=== PATIENT | female | born 1955 | race Asian ===

== ENCOUNTER 2017-12-18 23:51 | Inpatient (IN) | payer OTHER ==
[~2017-12-18] VITALS: Ht 154.9 cm; Wt 62.8 kg
[2017-12-19 01:05] LABS: Hematocrit 37.5 % (36.0-46.0); Hemoglobin 12.5 g/dL (12.2-16.2); Mean Corpuscular Hemoglobin 30.8 pg (28.0-32.0); Mean Corpuscular Hgb Conc. 33.5 g/dL (32.0-36.0); Platelet Count (auto) 261 10^3/uL (140-450); Red Blood Cells 4.07 10^6/uL (4.0-5.20); Red Cell Distribution Width 13.4 % (11.8-14.3); White Blood Cell 13.4 10^3/uL (4.4-10.8)
[2017-12-19 01:08] LABS: Band Neutrophils % (manual) 0; Basophils % (manual) 0 (0.0-2.0); Blast Cells 0; Metamyelocytes % 0; Myelocytes % 0; Promyelocytes % 0; Reactive Lymphocytes 0
[2017-12-19 01:22] LABS: INR 0.96 (0.9-1.15); Partial Thromboplastin Time 26.9 sec (23.78-33.04); Prothrombin Time 10.3 sec (9.27-12.13)
[2017-12-19 01:24] LABS: Alanine Aminotransferase 24 U/L (13-56); Albumin 3.3 g/dL (3.4-5.0); Anion Gap 9 (5-15); Aspartate Aminotransferase 19 U/L (15-37); BUN/Creatinine Ratio 15.2; Blood Urea Nitrogen 23 mg/dL (7-18); Calcium 8.4 mg/dL (8.5-10.1); Carbon Dioxide 24 mmol/L (21-32); Chloride 106 mmol/L (98-107); GFR African American 45 mL/min; GFR Non-African American 37 mL/min; Glucose 178 mg/dL (74-106); Magnesium 2.1 mg/dL (1.6-2.6); Potassium 3.7 mmol/L (3.5-5.1); Sodium 139 mmol/L (136-145)
[2017-12-19 01:29] LABS: Alkaline Phosphatase 90 U/L (45-117); Bilirubin, Total 0.4 mg/dL (0.2-1.0); Total Protein 7.7 g/dL (6.4-8.2)
[2017-12-19] MEDS ORDERED: ONDANSETRON HCL 4 MG/2 ML VIAL IV ONE (01:30)
[2017-12-19] MEDS ORDERED: HYDROmorphone HCL 2 MG/ML VL IV ONE (01:30)
[2017-12-19 01:34] LABS: Eosinophils % (manual) 32 (0-7); Lymphocytes % (manual) 19 (10.0-50.0); Monocytes % (manual) 8 (0-12)
[2017-12-19] MEDS ORDERED: ONDANSETRON HCL 4 MG/2 ML VIAL IV PRN (04:30)
[2017-12-19] MEDS ORDERED: HYDROcodone-ACET 5/325MG TAB PO PRN (04:30)
[2017-12-19] MEDS ORDERED: cloNIDine HCL 0.1 MG TAB PO PRN (04:30)
[2017-12-19] MEDS ORDERED: NITROGLYCERIN 0.4 MG SL TAB SL PRN (04:30)
[2017-12-19] MEDS ORDERED: MORPHINE SULFATE 4 MG/ML SYR/VIAL IV PRN (04:30)
[2017-12-19] MEDS ORDERED: ACETAMINOPHEN 325 MG TAB PO PRN (04:30)
[2017-12-19] MEDS ORDERED: DEXTROSE (50%) 50ML SYRG IV PRN (04:45)
[2017-12-19] MEDS: InsuLIN REG 1unit/0.01ml Soln (100units/ml) SC SCH ×3 (06:50→17:56)
[2017-12-19] MEDS: ACCU-CHEK COMFORT CURVE STRIP VI SCH ×4 (06:50→23:59)
[2017-12-19 07:35] LABS: Cholesterol 100 mg/dL (< 200); HDL Cholesterol 56 mg/dL (40-59); LDL Cholesterol 46 mg/dL (< 100); Triglycerides 82 mg/dL (< 150)
[2017-12-19] MEDS: FAMOTIDINE 20 MG TAB PO SCH (09:56)
[2017-12-19] MEDS: ATENOLOL 25 MG TAB PO SCH ×2 (09:57→21:56)
[2017-12-19] MEDS ORDERED: ASPirin 81 mg TAB PO SCH (10:00)
[2017-12-19] MEDS ORDERED: INSLANTI SC (10:26)
[2017-12-19] MEDS ORDERED: ATEN-60 PO (10:27)
[2017-12-19] MEDS ORDERED: ESTR1TAB3 PO (10:27)
[2017-12-19] MEDS ORDERED: INSLISPI SC (10:27)
[2017-12-19 12:55] VITALS: BP 110/54
[2017-12-19] MEDS ORDERED: ASPI81TA27 PO (14:55)
[2017-12-19] MEDS ORDERED: CETI1TAB36 PO (14:55)
[2017-12-19] MEDS ORDERED: ROSU10TA16 PO (14:55)
[2017-12-19] MEDS ORDERED: AMIT50TA3 PO (14:55)
[2017-12-19] MEDS ORDERED: TELM80TA PO (14:55)
[2017-12-19] MEDS ORDERED: ESTR0.1C TD (16:04)
[2017-12-19 16:38] VITALS: BP 116/61
[2017-12-19] MEDS: ATORVASTATIN 20 MG TAB PO SCH (21:56)
[2017-12-19] MEDS: TEMAZEPAM 15 MG CAP PO PRN (21:56)
[2017-12-19 22:00] VITALS: BP 123/64
[2017-12-19] MEDS: INSULIN LANTUS (GLARGINE) 1 /0.01ml (100units/ml) SC SCH (22:10)
[2017-12-20 05:00] VITALS: BP 110/48
[2017-12-20] MEDS: ACCU-CHEK COMFORT CURVE STRIP VI SCH ×4 (05:32→23:26)
[2017-12-20] MEDS: InsuLIN REG 1unit/0.01ml Soln (100units/ml) SC SCH ×5 (05:32→23:21)
[2017-12-20 06:05] LABS: Hematocrit 40.3 % (36.0-46.0); Hemoglobin 13.6 g/dL (12.2-16.2); Mean Corpuscular Hemoglobin 31.4 pg (28.0-32.0); Mean Corpuscular Hgb Conc. 33.8 g/dL (32.0-36.0); Mean Corpuscular Volume 93.1 fL (80.0-100.0); Platelet Count (auto) 247 10^3/uL (140-450); Red Blood Cells 4.33 10^6/uL (4.0-5.20); Red Cell Distribution Width 13.4 % (11.8-14.3); White Blood Cell 12.9 10^3/uL (4.4-10.8)
[2017-12-20 06:08] LABS: Band Neutrophils % (manual) 0; Basophils % (manual) 0 (0.0-2.0); Blast Cells 0; Metamyelocytes % 0; Myelocytes % 0; Promyelocytes % 0; Reactive Lymphocytes 0
[2017-12-20 06:17] LABS: Albumin 3.5 g/dL (3.4-5.0); BUN/Creatinine Ratio 19.4; Bilirubin, Total 0.7 mg/dL (0.2-1.0); Calcium 9.4 mg/dL (8.5-10.1); Total Protein 7.8 g/dL (6.4-8.2)
[2017-12-20 07:17] LABS: Eosinophils % (manual) 25 (0-7); Lymphocytes % (manual) 18 (10.0-50.0); Monocytes % (manual) 9 (0-12)
[2017-12-20 09:00] VITALS: BP 101/55
[2017-12-20] MEDS: ASPirin 81 mg TAB PO SCH (09:28)
[2017-12-20] MEDS: ATENOLOL 25 MG TAB PO SCH ×2 (09:29→21:44)
[2017-12-20] MEDS: FAMOTIDINE 20 MG TAB PO SCH (09:29)
[2017-12-20 13:00] VITALS: BP 119/65
[2017-12-20 17:00] VITALS: BP 113/55
[2017-12-20] MEDS: TEMAZEPAM 15 MG CAP PO PRN (21:43)
[2017-12-20] MEDS: ATORVASTATIN 20 MG TAB PO SCH (21:43)
[2017-12-20] MEDS: INSULIN LANTUS (GLARGINE) 1 /0.01ml (100units/ml) SC SCH (21:45)
[2017-12-20 22:00] VITALS: BP 106/66
[2017-12-21 05:00] VITALS: BP 121/65
[2017-12-21] MEDS: InsuLIN REG 1unit/0.01ml Soln (100units/ml) SC SCH ×3 (06:23→17:51)
[2017-12-21] MEDS: ACCU-CHEK COMFORT CURVE STRIP VI SCH ×3 (06:23→17:51)
[2017-12-21 09:00] VITALS: BP 109/43
[2017-12-21] MEDS: ATENOLOL 25 MG TAB PO SCH ×2 (09:30→21:59)
[2017-12-21] MEDS: ASPirin 81 mg TAB PO SCH (09:30)
[2017-12-21] MEDS: FAMOTIDINE 20 MG TAB PO SCH (09:30)
[2017-12-21] MEDS: LOPERAMIDE HCL 2 MG CAP PO PRN ×2 (11:34→17:05)
[2017-12-21 13:00] VITALS: BP 90/50
[2017-12-21 17:00] VITALS: BP 97/52
[2017-12-21] MEDS: ATORVASTATIN 20 MG TAB PO SCH (21:58)
[2017-12-21 22:00] VITALS: BP 105/61
[2017-12-21] MEDS: INSULIN LANTUS (GLARGINE) 1 /0.01ml (100units/ml) SC SCH (22:00)
[2017-12-22] MEDS: InsuLIN REG 1unit/0.01ml Soln (100units/ml) SC SCH ×3 (00:33→12:00)
[2017-12-22] MEDS: ACCU-CHEK COMFORT CURVE STRIP VI SCH ×3 (00:33→12:20)
[2017-12-22] MEDS: TEMAZEPAM 15 MG CAP PO PRN (00:34)
[2017-12-22 04:31] VITALS: BP 104/67
[2017-12-22] MEDS ORDERED: ADENOSINE 53 MG in GIVE UN-DILUTED 0 ML IV ONE (08:15)
[2017-12-22 08:27] VITALS: BP 105/63
[2017-12-22 09:35] VITALS: BP 108/62
[2017-12-22] MEDS: ATENOLOL 25 MG TAB PO SCH (10:00)
[2017-12-22] MEDS: FAMOTIDINE 20 MG TAB PO SCH (11:16)
[2017-12-22] MEDS: ASPirin 81 mg TAB PO SCH (11:16)
[2017-12-22 11:51] VITALS: BP 111/64
[2017-12-22 15:44] VITALS: BP 127/89
== END 2017-12-22 16:00 | disposition home or self-care (01) | DRG 683 ==
LOC: ER 23:56 → TELE 23:57 → EDBD 23:57 → TELE-WESTW 12-19 09:02
PROVIDERS: ADMIT Nurse Practitioner; ATTEND Internal Medicine
DX: N17.9 Acute kidney failure, unspecified (principal); J98.11 Atelectasis; R07.89 Other chest pain; E11.22 Type 2 diabetes mellitus with diabetic chronic kidney disease; E11.21 Type 2 diabetes mellitus with diabetic nephropathy; M54.9 Dorsalgia, unspecified; K76.0 Fatty (change of) liver, not elsewhere classified; K80.20 Calculus of gallbladder without cholecystitis without obstruction; I13.10 Hypertensive heart and chronic kidney disease without heart failure, with stage 1 through stage 4 chronic kidney disease, or unspecified chronic kidney disease; N18.9 Chronic kidney disease, unspecified; Z82.49 Family history of ischemic heart disease and other diseases of the circulatory system; Z90.710 Acquired absence of both cervix and uterus
CPT/HCPCS: 36415; 71046; 74176; 76705; 78452; 80053; 80061; 82962; 83036; 83690; 83735; 83880; 84443; 84484; 85007; 85027; 85379; 85610; 85730; 93017; 93306; 96374; 96375; J0153; J1815; J2405

== ENCOUNTER 2018-01-06 12:26 | Emergency (ER) | payer OTHER ==
[~2018-01-06] VITALS: Ht 154.9 cm; Wt 61.0 kg
[~2018-01-06 12:26] MED LIST: AMIT50TA3 PO; ASPI81TA27 PO; ATEN-60 PO; CETI1TAB36 PO; ESTR0.1C TD; ESTR1TAB3 PO; INSLANTI SC; INSLISPI SC; ROSU10TA16 PO; TELM80TA PO
[2018-01-06 14:05] LABS: Basophils # (auto) 0.1 uL; Basophils % (auto) 0.5 % (0.0-2.0); Eosinophils # (auto) 0.5 uL; Eosinophils % (auto) 4.8 % (0.0-7.0); Hematocrit 39.1 % (36.0-46.0); Hemoglobin 13.2 g/dL (12.2-16.2); Lymphocytes # (auto) 1.5 uL; Lymphocytes % (auto) 13.1 % (10.0-50.0); Mean Corpuscular Hemoglobin 31.1 pg (28.0-32.0); Mean Corpuscular Hgb Conc. 33.7 g/dL (32.0-36.0); Mean Corpuscular Volume 92.3 fL (80.0-100.0); Monocytes # (auto) 0.4 uL; Monocytes % (auto) 3.2 % (0.0-12.0); Neutrophils # (auto) 8.7 uL; Neutrophils % (auto) 78.4 % (37.0-80.0); Nucleated Red Blood Cells % 0.1 %; Platelet Count (auto) 327 10^3/uL (140-450); Red Blood Cells 4.24 10^6/uL (4.0-5.20); White Blood Cell 11.1 10^3/uL (4.4-10.8)
[2018-01-06 14:14] LABS: Urine Bacteria FEW /hpf (None Seen); Urine Blood Negative /uL (Negative); Urine Specific Gravity 1.016 (1.001-1.035); Urine WBC <1 /hpf (0 - 5)
[2018-01-06 14:28] LABS: Alanine Aminotransferase 39 U/L (13-56); Albumin 3.8 g/dL (3.4-5.0); Anion Gap 7 (5-15); Blood Urea Nitrogen 23 mg/dL (7-18); Carbon Dioxide 28 mmol/L (21-32); Chloride 100 mmol/L (98-107); Glucose 166 mg/dL (74-106); Magnesium 2.2 mg/dL (1.6-2.6); Potassium 5.2 mmol/L (3.5-5.1); Sodium 135 mmol/L (136-145)
[2018-01-06 14:33] LABS: Alkaline Phosphatase 111 U/L (45-117); Aspartate Aminotransferase 26 U/L (15-37); BUN/Creatinine Ratio 14.5; Bilirubin, Total 0.4 mg/dL (0.2-1.0); GFR African American 42 mL/min; GFR Non-African American 35 mL/min; Total Protein 8.9 g/dL (6.4-8.2)
[2018-01-06 15:21] VITALS: BP 132/46
== END 2018-01-06 15:49 | disposition home or self-care (01) ==
LOC: ER 12:26
DX: E86.0 Dehydration (principal); E11.22 Type 2 diabetes mellitus with diabetic chronic kidney disease; I12.9 Hypertensive chronic kidney disease with stage 1 through stage 4 chronic kidney disease, or unspecified chronic kidney disease; N18.9 Chronic kidney disease, unspecified; Z90.710 Acquired absence of both cervix and uterus; Z79.82 Long term (current) use of aspirin; Z79.899 Other long term (current) drug therapy; Z79.4 Long term (current) use of insulin
CPT/HCPCS: 36415; 80053; 81001; 83735; 84484; 85025; 93005